=== PATIENT | male | born 1975 | race Caucasian/White ===

== ENCOUNTER 2021-10-26 19:06 | Emergency (ER) | payer BC ==
[2021-10-26 20:07] VITALS: TEMP 100.4
--- NOTE | 2021-10-26 20:10 | ED ---
General Adult HPI - General Stated complaint: LETICIA, Covid+ Time Seen by Provider: 10/26/21 20:05 - History of Present Illness Initial comments: 46 year-old male patient presents to the emergency department for vomiting, cough, chest pain. He did test positive for COVID and influenza 5 days ago. Symptoms started 8 days ago. States that he does not feel any better. Symptoms seem to be worsening. He has been having fever or chills. Reports body aches and fatigue. No chronic medical conditions. Denies taking any medications for his symptoms. - Related Data Home Medications Medication Instructions Recorded Confirmed Acetaminophen Tab [Tylenol Tab] 1,000 mg PO Q6HR PRN 10/26/21 10/26/21 Previous Rx's Medication Instructions Recorded Albuterol Sulfate [Proair Hfa] 1 - 2 puff INHALATION Q6HR PRN 10/26/21 #8.5 gm Dexamethasone 6 mg PO DAILY #9 tablet 10/26/21 Ondansetron [Zofran ODT] 4 mg PO Q8HR PRN #20 tab 10/26/21 Allergies Allergy/AdvReac Type Severity Reaction Status Date / Time No Known Allergies Allergy Verified 10/26/21 22:03 Review of Systems ROS Statement: Those systems with pertinent positive or pertinent negative responses have been documented in the HPI. ROS Other: All systems not noted in ROS Statement are negative. General Exam General appearance: alert, in no apparent distress, other (Physical well- developed, well-nourished adult male in no acute distress.) Eye exam: Present: normal appearance, PERRL, EOMI. Absent: scleral icterus, conjunctival injection, periorbital swelling ENT exam: Present: normal exam, normal oropharynx, mucous membranes moist Respiratory exam: Present: normal lung sounds bilaterally. Absent: respiratory distress, wheezes, rales, rhonchi, stridor Cardiovascular Exam: Present: regular rate, normal rhythm, normal heart sounds. Absent: systolic murmur, diastolic murmur, rubs, gallop, clicks GI/Abdominal exam: Present: soft, normal bowel sounds. Absent: distended, tenderness, guarding, rebound, rigid Neurological exam: Present: alert, oriented X3, CN II-XII intact Psychiatric exam: Present: normal affect, normal mood Skin exam: Present: warm, dry, intact, normal color. Absent: rash Course Vital Signs 10/26/21 10/26/21 20:03 23:39 Temperature 100.4 F H Pulse Rate 83 101 H Respiratory 20 18 Rate Blood Pressure 121/83 116/78 O2 Sat by Pulse 96 95 Oximetry EKG Findings - EKG Comments: EKG Findings:: EKG obtained at 2019 shows normal sinus rhythm with a ventricular rate of 77, DE interval 140, QRS duration 84, QT 354, QTC 400. No evidence of ST elevation or depression. Medical Decision Making - Medical Decision Making 46-year-old male patient presented to the emergency department for worsening symptoms after testing positive for influenza and COVID-19. Physical examination revealed clear equal lung sounds. Vital signs to reveal elevated temperature, tachycardia. Oxygen saturation is satisfactory. Chest x-ray showed mild subsegmental atelectasis bilaterally. He did receive IV fluids, monoclonal antibody infusion, IV Benadryl, Toradol, and Zofran. We did give 1 L of IV fluids. Upon reevaluation is resting comfortably in bed. States he feels much better. He will be discharged home with prescriptions for dexamethasone, pro-air, and Zofran. He is instructed to follow-up with his primary care physician for recheck in 1-2 days. Return parameters were discussed in detail. He verbalizes understanding and agrees with this plan. My attending is Dr. Landry ware. - Radiology Data Radiology results: report reviewed, image reviewed Two-view x-ray of the chest is obtained. Report was reviewed in its entirety. Impression by Dr. Dolan shows mild bilateral subsegmental atelectasis. Normal heart. Disposition Clinical Impression: COVID-19 Disposition: HOME SELF-CARE Condition: Good Instructions (If sedation given, give patient instructions): Coronavirus Disease 2019 (COVID-19) Prescriptions: Dexamethasone 6 mg PO DAILY #9 tablet Albuterol Sulfate [Proair Hfa] 1 - 2 puff INHALATION Q6HR PRN #8.5 gm PRN Reason: Shortness Of Breath Ondansetron [Zofran ODT] 4 mg PO Q8HR PRN #20 tab PRN Reason: Nausea Is patient prescribed a controlled substance at d/c from ED?: No Referrals: None,Stated [Primary Care Provider] - 1-2 days
[2021-10-26] MEDS ORDERED: CASIRIVIMAB (REGN10933) (EUA) 600 MG, IMDEVIMAB (REGN10987) (EUA) 600 MG in SODIUM CHLO... IVPB ONE (20:45)
[2021-10-26] MEDS ORDERED: SODIUM CHLORIDE 0.9% 50 ML IVPB ONE (20:45)
--- NOTE | 2021-10-26 20:45 | XR ---
EXAMINATION TYPE: XR chest 2V DATE OF EXAM: 10/26/2021 COMPARISON: NONE HISTORY: Chest pain TECHNIQUE: 2 view FINDINGS: There is mild linear density in the lower lung alford. Heart size is normal. There are no h ilar masses. Mediastinum is normal. There is no pleural effusion. Bony thorax is intact. IMPRESSION: Mild bilateral subsegmental atelectasis. Normal heart.
[2021-10-26] MEDS ORDERED: ACETAMINOPHEN TAB 500 MG TAB PO STA (21:33)
[2021-10-26] MEDS ORDERED: diphenhydrAMINE 50 MG/ML 1 ML VIAL IVP STA (21:33)
[2021-10-26] MEDS ORDERED: ONDANSETRON 4 MG/2 ML VIAL IVP STA (21:33)
[2021-10-26] MEDS ORDERED: KETOROLAC 15 MG/ML 1 ML VIAL IVP STA (21:33)
[2021-10-26] MEDS ORDERED: SODIUM CHLORIDE 0.9% 1,000 ML IV ONE (21:33)
[2021-10-26] MEDS ORDERED: DEXAMETHASONE SOD PHOSPHATE 10 MG/ML 1 ML VIAL IVP STA (21:33)
[2021-10-26 23:40] VITALS: BP 116/78; PULSE 101; RESP 18
== END 2021-10-26 23:40 | disposition home or self-care (01) ==
LOC: EC 19:06
DX: U07.1 COVID-19 (principal)
CPT/HCPCS: 93005; 71046; 99285; 96374; 96375; J1200; J1100; J2405; J1885; Q0244

== ENCOUNTER 2024-01-29 09:15 | Day surgery (SDC) | payer BC ==
[2024-01-24 15:12] VITALS: BMI 29.2
[~2024-01-29 09:15] MED LIST: LACTATED RINGERS 1,000 ML IV SCH
[2024-01-29] MEDS: LACTATED RINGERS 1,000 ML IV ONE ×2 (09:35→11:02)
[2024-01-29 10:18] VITALS: TEMP 97.1
[2024-01-29] MEDS ORDERED: PROPOFOL 10 MG/ML 20 ML VIAL IV ONE (11:03)
[2024-01-29] MEDS ORDERED: LIDOCAINE 1% INJ 10MG/ML (20 ML MDV) ONE (11:03)
--- NOTE | 2024-01-29 11:08 | P.GSHP ---
History of Present Illness H&P Date: 01/29/24 Chief Complaint: Screening colonoscopy This a 48-year-old male who presents today for screening colonoscopy. Patient denies a significant GI complaints. Past Medical History Past Medical History: No Reported History Additional Past Medical History / Comment(s): pneumonia History of Any Multi-Drug Resistant Organisms: None Reported Past Surgical History: No Surgical Hx Reported Past Anesthesia/Blood Transfusion Reactions: No Reported Reaction Smoking Status: Never smoker - Past Family History Mother Family Medical History: No Reported History Medications and Allergies Home Medications Medication Instructions Recorded Confirmed Type No Known Home Medications 01/24/24 01/29/24 History Allergies Allergy/AdvReac Type Severity Reaction Status Date / Time No Known Allergies Allergy Verified 01/29/24 09:46 Surgical - Exam Vital Signs Temp Pulse Resp BP Pulse Ox 97.1 F L 68 20 122/80 96 01/29/24 09:41 01/29/24 09:41 01/29/24 09:41 01/29/24 09:41 01/29/24 09:41 - General well developed, well nourished, no distress - Eyes PERRL - ENT normal pinna - Neck no masses - Respiratory normal expansion - Abdomen Abdomen: soft, non tender Assessment and Plan Assessment: We'll perform screening colonoscopy
--- NOTE | 2024-01-29 11:18 | P.OP ---
Date of Procedure: 01/29/24 Preoperative Diagnosis: Screening colonoscopy Postoperative Diagnosis: Normal colon Procedure(s) Performed: Colonoscopy Anesthesia: MAC Surgeon: Ck Nichole Pathology: none sent Condition: stable Disposition: PACU Description of Procedure: PROCEDURE: The patient was placed on the endoscopy table in the lateral position. Digital rectal examination was performed which revealed no abnormalities. The prostate was symmetrical without nodules. Flexible colonoscope was then placed in the patient's anus and passed throughout the entire colon. The ileocecal valve was visualized. The cecum, ascending, transverse, descending and sigmoid colon were normal. The rectum was normal as well. There were no masses, polyps or diverticula noted in the entire colon. SUMMARY OF FINDINGS: Normal colonoscopy.
[2024-01-29 11:34] VITALS: RESP 16
[2024-01-29 12:11] VITALS: BP 116/77; PULSE 60
== END 2024-01-29 11:53 | disposition home or self-care (01) ==
LOC: ORWHC2ENDO 09:15
PROVIDERS: ATTEND Surgery
DX: Z12.11 Encounter for screening for malignant neoplasm of colon (principal); Z79.899 Other long term (current) drug therapy
CPT/HCPCS: 45378; J2001; J2704